=== PATIENT | male | born 1965 | race Caucasian/White ===

== ENCOUNTER 2022-12-14 12:22 | Outpatient (OUT) | payer OTHER, SELFPAY ==
--- NOTE | 2022-12-14 12:39 | CA_ITS ---
[facility] Test Date: 2023-01-12 Pat Name: Dean Gonzalez Department: Room: - Gender: Male [employer] Service Attendant: : [id number] Requested By: [id number] Order Number: [id number] Reading MD: TANGELA MUNGUIA Interpretive Statements Predominant rhythm is sinus with average rate of 73 bpm Tachycardia - max rate of 138 bpm - longest episode of 34min 10sec with rate of 112 to 133 bpm - 1 episode of SVT of 3 beat duration Bradycardia - min rate of 51 bpm - longest episode of 23min 30sec with rate of 53 to 57 bpm Ventricular ectopy - none Patient triggered events: none Impression: Predominant rhythm is sinus with average rate of 73 bpm Fastest rate of 138 bpm and slowest rate of 51 bpm No ventricular ectopy recorded No pauses or blocks recorded Electronically Signed On 01-13-2023 7:15:06 EDT by TANGELA MUNGUIA
== END 2022-12-14 12:23 ==
LOC: CARD 12:23
PROVIDERS: PCP Physician Assistant; Visit Provider Physician Assistant
DX: I10 Essential (primary) hypertension (principal); R00.0 Tachycardia, unspecified
CPT/HCPCS: 93246

== ENCOUNTER 2024-08-14 10:00 | Outpatient (OUT) | payer OTHER, SELFPAY | END 2024-08-14 10:01 | disposition home or self-care (01) | LOC: SLEEP 08-15 11:16 | PROVIDERS: PCP Physician Assistant; Visit Provider Physician Assistant | DX: G47.33 Obstructive sleep apnea (adult) (pediatric) (principal) | CPT/HCPCS: 95806 ==